=== PATIENT | female | born 1985 | race Caucasian/White ===

== ENCOUNTER 2020-12-10 18:25 | Outpatient (CLI) | payer BC ==
[~2020-12-10] VITALS: Ht 182.9 cm; Wt 78.9 kg
== END 2020-12-11 11:32 | disposition home or self-care (01) ==
LOC: GENOP 18:25
DX: O60.03 Preterm labor without delivery, third trimester (principal); Z3A.29 29 weeks gestation of pregnancy
CPT/HCPCS: 36415; 81001; 82731; 83735; 96361; 96365; 96366; 96367; 96368; 96372; J0690; J3105; J3475

== ENCOUNTER 2021-01-09 19:47 | Outpatient (CLI) | payer BC | END 2021-01-10 02:15 | disposition home or self-care (01) | LOC: GENOP 19:47 | DX: O62.9 Abnormality of forces of labor, unspecified (principal); Z3A.33 33 weeks gestation of pregnancy | CPT/HCPCS: 96360; 96361; 96372; J3105; J3475; J7120 ==

== ENCOUNTER 2021-01-19 12:33 | Outpatient (CLI) | payer BC ==
[2021-01-19 13:44] LABS: HEMOGLOBIN 11.4 gm/dl (12.3-15.3); RED BLOOD COUNT 4.14 M/UL (4.00-5.10); WHITE BLOOD COUNT 10.6 K/UL (4.5-11.0)
== END 2021-01-19 14:36 | disposition home or self-care (01) ==
LOC: GENOP 12:33
PROVIDERS: Obstetrics & Gynecology
DX: O60.03 Preterm labor without delivery, third trimester (principal); Z3A.35 35 weeks gestation of pregnancy
CPT/HCPCS: 36415; 81001; 85025; G0463

== ENCOUNTER 2021-02-11 05:30 | Inpatient (IN) | payer BC ==
[~2021-02-11] VITALS: Ht 182.9 cm; Wt 83.9 kg
[2021-02-11 06:34] LABS: HEMOGLOBIN 11.5 gm/dl (12.3-15.3); RED BLOOD COUNT 4.27 M/UL (4.00-5.10); WHITE BLOOD COUNT 9.1 K/UL (4.5-11.0)
[2021-02-11] MEDS ORDERED: PRENATABS FA T1 EACH PO (06:37)
[2021-02-11 07:14] LABS: BUN/CREATININE RATIO 13 (0-10)
[2021-02-11] MEDS ORDERED: IBUPROFEN600 MG PO (11:42)
[2021-02-11] MEDS ORDERED: COLACE 100MG C100 MG PO (11:42)
[2021-02-12 05:58] LABS: HEMOGLOBIN 9.9 gm/dl (12.3-15.3)
== END 2021-02-12 13:51 | disposition home or self-care (01) | DRG 807 ==
LOC: OB 05:30
PROVIDERS: ADMIT Obstetrics & Gynecology
PROC: 10E0XZZ Delivery of Products of Conception, External Approach (ICD-10-PCS; principal; 2021-02-11)
PROC: 0KQM0ZZ Repair Perineum Muscle, Open Approach (ICD-10-PCS; 2021-02-11)
PROC: 10907ZC Drainage of Amniotic Fluid, Therapeutic from Products of Conception, Via Natural or Artificial Opening (ICD-10-PCS; 2021-02-11)
PROC: 3E033VJ Introduction of Other Hormone into Peripheral Vein, Percutaneous Approach (ICD-10-PCS; 2021-02-11)
DX: O13.4 Gestational [pregnancy-induced] hypertension without significant proteinuria, complicating childbirth (principal); Z37.0 Single live birth; O70.1 Second degree perineal laceration during delivery; Z20.822 Contact with and (suspected) exposure to COVID-19; Z3A.38 38 weeks gestation of pregnancy; Z98.890 Other specified postprocedural states
CPT/HCPCS: 36415; 51702; 80053; 81001; 82570; 82800; 84156; 84550; 85014; 85018; 85025; 90715; J2590; J2795; J7030; J7120; U0002